=== PATIENT | female | born 1975 | race American Indian/Alaskan Native ===

== ENCOUNTER 2018-02-02 11:00 | Outpatient (CLI) | payer MEDICAID | END 2018-02-02 11:01 | disposition home or self-care (01) | LOC: SLR 11:00 | PROVIDERS: ATTEND Otolaryngology | DX: G47.33 Obstructive sleep apnea (adult) (pediatric) (principal); E66.9 Obesity, unspecified; E03.9 Hypothyroidism, unspecified; Z90.710 Acquired absence of both cervix and uterus | CPT/HCPCS: G0399 ==

== ENCOUNTER 2021-12-22 23:57 | Observation (INO) | payer MEDICAID, OTHER ==
[2021-12-23] MEDS ORDERED: KETOROLAC 30 MG/1 ML INJ IV ONE (23:07)
[2021-12-23] MEDS ORDERED: diphenhydrAMINE 50 MG/ML VIAL IV ONE (23:07)
[2021-12-23] MEDS ORDERED: PROCHLORPERAZINE EDISYLATE 10 MG/2 ML VIAL IV ONE (23:07)
[2021-12-23] MEDS ORDERED: LIDOCAINE (4%) 40 MG/ML TOPICAL SOLN 50 ML BOTTLE TP ONE (23:45)
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
[2021-12-24 00:16] LABS: Basophils # (Auto) 0.1 K/mm3 (0.0-0.1); Basophils % (Auto) 1.2 % (0.0-1.8); Eosinophils # (Auto) 0.1 K/mm3 (0.0-0.4); Eosinophils % (Auto) 1.3 % (0.0-4.3); Hematocrit 38.9 % (30.3-42.9); Hemoglobin 12.8 gm/dl (10.1-14.3); Lymphocytes # (Auto) 2.9 K/mm3 (1.2-5.4); Lymphocytes % (Auto) 37.3 % (13.4-35.0); Mean Corpuscular HGB Conc 33 % (30-34); Mean Corpuscular Volume 83 fl (79-97); Monocytes # (Auto) 0.6 K/mm3 (0.0-0.8); Monocytes % (Auto) 8.2 % (0.0-7.3); Platelet Count 416 K/mm3 (140-440); Red Blood Count 4.68 M/mm3 (3.65-5.03); Red Cell Distribution Width 14.7 % (13.2-15.2)
[2021-12-24 00:28] LABS: Alanine Aminotransferase 23 units/L (7-56); Albumin 4.3 g/dL (3.9-5); Blood Urea Nitrogen 10 mg/dL (7-17); Calcium 9.2 mg/dL (8.4-10.2); Hemolysis Index 7
[2021-12-24 00:31] LABS: BUN/Creatinine Ratio 17
[2021-12-24 00:32] LABS: INR 0.87 (0.87-1.13)
[2021-12-24 00:33] LABS: Partial Thromboplastin Time 32.6 Sec. (24.2-36.6)
--- NOTE | 2021-12-24 00:40 | Cat Scan Report ---
CT HEAD WITHOUT CONTRAST INDICATION / CLINICAL INFORMATION: SANCHEZ, right sided weakness numbness. TECHNIQUE: All CT scans at this location are performed using CT dose reduction for ALARA by means of automated e xposure control. COMPARISON: None available. FINDINGS: HEMORRHAGE: None. EXTRA-AXIAL SPACES: Normal in size and morphology for the patient's age. VENTRICULAR SYSTEM: Normal in size and morphology for the patient's age. CEREBRAL PARENCHYMA: Microangiopathy bifrontal region. 1.9 cm hypodense ischemic lesion deep white ma tter left posterior parietal lobe image 21. No large territorial infarction MIDLINE SHIFT OR HERNIATION: None. CEREBELLUM / BRAINSTEM: No significant abnormality. ORBITS: Normal as visualized. SOFT TISSUES of HEAD: No significant abnormality. CALVARIUM: No significant abnormality. PARANASAL SINUSES / MASTOID AIR CELLS: Normal as visualized. ADDITIONAL FINDINGS: None. IMPRESSION: 1. 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 2. No intracranial bleed or large territorial infarction Signer Name: Wes Goodwin MD Signed: 12/24/2021 12:35 AM Workstation Name: [id number]
[2021-12-24] MEDS ORDERED: ASPIRIN 81 MG TAB CHEW PO ONE (00:55)
[2021-12-24] MEDS ORDERED: PROMETHAZINE 25 MG RECT SUPP PR PRN (00:55)
[2021-12-24] MEDS ORDERED: METOCLOPRAMIDE 10 MG TAB PO PRN (00:55)
[2021-12-24] MEDS ORDERED: ACETAMINOPHEN 325 MG TAB PO PRN (00:55)
[2021-12-24] MEDS ORDERED: MAGNESIUM HYDROXIDE (MOM) ORAL LIQD UDC PO PRN ×2 (00:55)
[2021-12-24] MEDS ORDERED: ONDANSETRON 4 MG/2 ML INJ IV PRN ×2 (00:55)
[2021-12-24] MEDS ORDERED: MORPHINE 2 MG/1 ML INJ IV PRN ×2 (00:55)
[2021-12-24] MEDS ORDERED: MORPHINE 4 MG/1 ML INJ IV PRN ×2 (00:55)
--- NOTE | 2021-12-24 01:14 | History and Physical Report ---
History of Present Illness Date of examination: 12/24/21 Date of admission: 12/24/2021 Chief complaint: Right Sided Weakness History of present illness: 46-year-old -[place]ian female presenting to the emergency room today complaining of headache, blurry vision and right-sided weakness which started about 7 PM yesterday. Blurring of vision has been ongoing for the past few days but got worse yesterday. She denies any fever or chills, no neck pain, no nause a vomiting, no abdominal pain and no diarrhea. Headache is said to be global, no known relieving or exacerbating factor. Patient denies any fall, denies any difficulty with swallowing and no difficulty with speech. She denies any facial numbness or asymmetry. Work-up in the emergency room today, labs were unremarkable. CT scan of the head shows microangiopathy with deep white matter ischemic lesion left posterior parietal lobe. No intracranial bleed or large territorial infarction. Patient is being admitted for CVA work-up. Past History Past Medical History: hypothyroidism, renal failure (Has only one functioning Kidney) Past Surgical History: hysterectomy (Partial), Other ((DUC. BREAST REDUCTION IN 2012, EXCISION BREAST BX 04-13-15)) Social history: alcohol abuse (Occasional Alcohol ) Family history: no significant family history Medications and Allergies Allergies Allergy/AdvReac Type Severity Reaction Status Date / Time No Known Allergies Allergy Verified 05/08/15 04:22 Home Medications Medication Instructions Recorded Confirmed Last Taken Type Cholecalciferol (Vitamin D3) 5,000 unit PO DAILY 04/09/15 08/31/15 08/30/15 07:00 History [Vitamin D] Levothyroxine [Synthroid] 25 mcg PO QAM 04/09/15 08/31/15 08/30/15 07:00 History Cyclobenzaprine [Flexeril] 10 mg PO TID PRN #14 tablet 09/19/16 Unknown Rx Ketorolac [Toradol] 10 mg PO Q6H PRN #20 tablet 09/19/16 Unknown Rx Active Meds: Active Medications Acetaminophen (Acetaminophen 325 Mg Tab) 650 mg PO Q4H PRN PRN Reason: Pain MILD(1-3)/Fever >100.5/SANCHEZ Aspirin (Aspirin 325 Mg Tab) 325 mg PO QDAY DIRK Atorvastatin Calcium (Atorvastatin 40 Mg Tab) 40 mg PO QHS DIRK Bisacodyl (Bisacodyl 10 Mg Rect Supp) 10 mg MS QDAY PRN PRN Reason: Constipation Heparin Sodium (Porcine) (Heparin 5,000 Unit/1 Ml Vial) 5,000 unit SUB-Q Q8HR DIRK Magnesium Hydroxide (Magnesium Hydroxide (Mom) Oral Liqd Udc) 30 ml PO Q4H PRN PRN Reason: Constipation Magnesium Hydroxide (Magnesium Hydroxide (Mom) Oral Liqd Udc) 30 ml PO Q4H PRN PRN Reason: Constipation Metoclopramide HCl (Metoclopramide 10 Mg Tab) 10 mg PO Q6H PRN PRN Reason: Nausea And Vomiting Morphine Sulfate (Morphine 2 Mg/1 Ml Inj) 2 mg IV Q4H PRN PRN Reason: Pain, Moderate (4-6) Morphine Sulfate (Morphine 4 Mg/1 Ml Inj) 4 mg IV Q4H PRN PRN Reason: Pain , Severe (7-10) Morphine Sulfate (Morphine 2 Mg/1 Ml Inj) 2 mg IV Q4H PRN PRN Reason: Pain, Moderate (4-6) Morphine Sulfate (Morphine 4 Mg/1 Ml Inj) 4 mg IV Q4H PRN PRN Reason: Pain , Severe (7-10) Ondansetron HCl (Ondansetron 4 Mg/2 Ml Inj) 4 mg IV Q8H PRN PRN Reason: Nausea And Vomiting Ondansetron HCl (Ondansetron 4 Mg/2 Ml Inj) 4 mg IV Q8H PRN PRN Reason: Nausea And Vomiting Promethazine HCl (Promethazine 25 Mg Rect Supp) 25 mg MS Q6H PRN PRN Reason: Nausea And Vomiting Sodium Chloride (Sodium Chloride 0.9% 10 Ml Flush Syringe) 10 ml IV BID DIRK Sodium Chloride (Sodium Chloride 0.9% 10 Ml Flush Syringe) 10 ml IV PRN PRN PRN Reason: LINE FLUSH Sodium Chloride (Sodium Chloride 0.9% 10 Ml Flush Syringe) 10 ml INJ PRN PRN PRN Reason: LINE FLUSH Review of Systems Constitutional: no fever, no chills Ears, nose, mouth and throat: no nasal congestion, no sore throat Cardiovascular: no chest pain, no palpitations Respiratory: no cough, no shortness of breath Gastrointestinal: no abdominal pain, no nausea, no vomiting, no diarrhea Genitourinary Female: no pelvic pain, no flank pain, no dysuria, no hematuria Musculoskeletal: no neck pain, no low back pain Integumentary: no rash, no pruritis Neurological: weakness (Right sided weakness), headaches, no confusion Psychiatric: no anxiety, no depression Endocrine: no polyphagia, no polydipsia, no polyuria, no nocturia Exam - Constitutional Vitals: Temp Pulse Resp BP Pulse Ox 98.0 F 75 19 142/85 100 12/23/21 00:51 12/23/21 23:57 12/23/21 23:57 12/23/21 23:57 12/23/21 23:57 General appearance: Present: no acute distress, well-nourished - EENT Eyes: Present: PERRL, EOM intact. Absent: scleral icterus ENT: hearing intact, clear oral mucosa, dentition normal - Neck Neck: Present: supple, normal ROM - Respiratory Respiratory effort: normal Respiratory: bilateral: CTA - Cardiovascular Rhythm: regular Heart Sounds: Present: S1 & S2. Absent: gallop, systolic murmur, diastolic murmur, rub, click - Extremities Extremities: no ischemia, pulses intact, pulses symmetrical, No edema, normal temperature, Full ROM Peripheral Pulses: within normal limits - Abdominal General gastrointestinal: Present: soft, non-tender, non-distended, normal bowel sounds. Absent: mass - Integumentary Integumentary: Present: clear, warm, dry, normal turgor. Absent: rash - Musculoskeletal Musculoskeletal: right sided weakness - Psychiatric Psychiatric: appropriate mood/affect, intact judgment & insight, memory intact, cooperative - Neurologic Neurologic: CNII-XII intact, moves all extremities, other (Right upper and right lower extremity weakness) HEART Score - HEART Score Troponin: Troponin T < 0.010 ng/mL (0.00-0.029) 12/23/21 23:49 Results - Labs CBC & Chem 7: 12/23/21 23:49 12/23/21 23:49 Labs: Abnormal lab results 12/23/21 12/23/21 Range/Units 23:49 23:49 MCH 27 L (28-32) pg Lymph % (Auto) 37.3 H (13.4-35.0) % [place] % (Auto) 8.2 H (0.0-7.3) % Glucose 101 H (65-100) mg/dL Alkaline Phosphatase 132 H (35-129) units/L Total Creatine Kinase 235 H (30-135) units/L Assessment and Plan Assessment: 1. Right-sided weakness- R/O CVA 2. History of hypothyroidism 3. History of GERD 4. Headache Plan: 1. Patient admitted and placed on telemetry. Placed on daily aspirin and statin. 2. We will schedule for carotid Doppler, echocardiogram and MRI of the brain. 3. Consult placed to neurology for evaluation and recommendation. 4. We will resume routine home medications once reconciled. 5. We will consult PT /OT for evaluation and recommendations. DVT prophylaxis: Subcutaneous heparin CODE STATUS: Full code
[2021-12-24] MEDS: HEPARIN 5,000 UNIT/1 ML VIAL SUB-Q SCH ×2 (05:30→14:21)
[2021-12-24] MEDS ORDERED: ASPIRIN 325 MG TAB PO SCH (10:00)
--- NOTE | 2021-12-24 11:08 | Magnetic Resonance Report ---
MRI BRAIN 12/24/2021 INDICATION / CLINICAL INFORMATION: Stroke vs. MS, DIZZINESS, LOSS OF VISION. TECHNIQUE: Multiplanar, multisequence MR images of the brain were obtained. COMPARISON: None available. FINDINGS: BRAIN / INTRACRANIAL CONTENTS: Unenhanced and enhanced MR images of the brain were obtained. There is no evidence of acute abnormality. Ventricles and sulci are normal in size and shape. Diffusely prominent perivascular spaces are present in the cerebral cortex. I would consider this to be somewhat unusual anatomic variant. There is no evidence of ischemic injury, demyelination, hemorrhage, or mass. There are no abnormal ex tra-axial fluid collections. Postcontrast images demonstrate no abnormal contrast enhancement. EXTRACRANIAL: Unremarkable CRANIOCERVICAL JUNCTION: No significant abnormality. VASCULAR FLOW-VOIDS: No significant abnormality. IMPRESSION: 1. No acute abnormality. 2. Diffusely prominent perivascular space in the cerebral cortices No evidence of acute ischemic injury or demyelination. Signer Name: Randolph Lozano MD Signed: 12/24/2021 11:03 AM Workstation Name: [id number]
--- NOTE | 2021-12-24 11:09 | Magnetic Resonance Report ---
MRA NECK 12/24/2021 INDICATION / CLINICAL INFORMATION: Stroke, DIZZINESS, LOSS OF VISION. TECHNIQUE: Routine MRA of the neck are performed. 3-D/MIP reformats postprocessed. Percentage stenosis is deter mined by direct quantitative measurements of distal internal carotid artery diameter compared with no rmal reference segments or by criteria similar to NASCET where applicable. COMPARISON: None available. FINDINGS: Unenhanced and enhanced MR angiographic images of the neck were obtained. 3D/MIP reformats were post- processed. Postcontrast images are of limited quality due to difficulties with bolus timing. Carotid bifurcations: No evidence of abnormality. Common carotid arteries: No significant abnormality. Cervical internal carotid arteries: No significant abnormality. Cervical vertebral arteries: No significant abnormality. Visible aortic arch: Not well seen IMPRESSION: No significant abnormality. Signer Name: Randolph Lozano MD Signed: 12/24/2021 11:05 AM Workstation Name: [id number]
--- NOTE | 2021-12-24 11:10 | Magnetic Resonance Report ---
MR VENOGRAM BRAIN 12/24/2021 HISTORY: Venous Sinus Thrombosis / Stroke workup. FINDINGS: MR venographic images of the intracranial circulation were obtained. There is good flow signal in the major dural sinuses. The left transverse and sigmoid sinus are relat ively hypoplastic, in a pattern consistent with anatomic variation. IMPRESSION: No significant abnormality. All CT scans at this location are performed using dose reduction to ALARA by means of automated expos ure control. Signer Name: Randolph Lozano MD Signed: 12/24/2021 11:06 AM Workstation Name: [id number]
[2021-12-24 12:00] VITALS: BP 106/72
--- NOTE | 2021-12-24 13:32 | Electrocardiograph Report ---
[facility] Test Date: 2021-12-24 Test Time: 00:12:58 Pat Name: LICO BROOKS Department: Room: A469 1 Gender: F Sample Wrapper: LESLIE : 1975 Requested By: KIA CARTAGENA Order Number: [id number] Reading MD: Christal Wilder Measurements Intervals [place] Rate: 69 P: 64 NM: 134 QRS: 18 QRSD: 79 T: 55 QT: 418 QTc: 448 Interpretive Statements Sinus rhythm Poor R wave progress No previous ECG available for comparison Electronically Signed On 12-24-2021 13:32:24 EDT by Christal Wilder
--- NOTE | 2021-12-24 14:24 | Vascular Lab Report ---
DUPLEX DOPPLER ULTRASOUND CAROTID, BILATERAL INDICATION / CLINICAL INFORMATION: stroke. COMPARISON: MRA/MRV neck performed today. FINDINGS: RIGHT CAROTID: No significant atherosclerotic plaque. - PLAQUE ESTIMATE (%): None. - CCA velocity: 80 cm/sec. - ICA peak systolic velocity: 119 cm/sec. - ICA/CCA PSV Ratio: Less than 2. Right Vertebral Artery: Antegrade flow. LEFT CAROTID: No significant atherosclerotic plaque. - PLAQUE ESTIMATE (%): None. - CCA velocity: 107 cm/sec. - ICA peak systolic velocity: 121 cm/sec. - ICA/CCA PSV Ratio: Less than 2. Left Vertebral Artery: Antegrade flow. IMPRESSION: 1. Right Internal Carotid Artery: Normal. No stenosis. 2. Left Internal Carotid Artery: Normal. No stenosis. Velocity criteria are extrapolated from diameter data as defined by the Society of Radiologists in Ul trasound Consensus Conference, Radiology 2003; 229;340-346. NO STENOSIS (NORMAL) - Plaque = none; ICA PSV < 125 cm/sec; ICA/CCA PSV Ratio < 2.0 <50% STENOSIS - Plaque < 50%; ICA PSV < 125 cm/sec; ICA/CCA PSV Ratio < 2.0 50-69% STENOSIS - Plaque > 50%; ICA PSV = 125-230 cm/sec; ICA/CCA PSV Ratio = 2.0-4.0 >70% BUT <100% STENOSIS - Plaque > 50%; ICA PSV > 230 cm/sec; ICA/CCA PSV Ratio > 4.0 NEAR OCCLUSION - Plaque = visible lumen; ICA PSV = high/low/none; ICA/CCA PSV Ratio = variable TOTAL OCCLUSION - Plaque = no lumen; ICA PSV = none; ICA/CCA PSV Ratio = N/A Scribed by: Tanvi Garcias RDMS, RVT, RMSKS Scribed: 12/24/2021 12:15 PM I have reviewed the images, agree with this report, and edited this report as needed. Signer Name: Ramón Bills MD Signed: 12/24/2021 2:20 PM Workstation Name: [id number]
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
[2021-12-25] MEDS ORDERED: LEVOTHYROXINE 25 MCG TAB PO SCH (06:00)
== END 2021-12-24 17:15 | disposition home or self-care (01) ==
LOC: ED 23:57 → INTOOBSV 12-24 00:55 → 4A 12-24 00:55
PROVIDERS: ADMIT Internal Medicine Geriatric Medicine; ATTEND Internal Medicine
DX: M62.81 Muscle weakness (generalized) (principal); E03.9 Hypothyroidism, unspecified; K21.9 Gastro-esophageal reflux disease without esophagitis; N19 Unspecified kidney failure; G43.909 Migraine, unspecified, not intractable, without status migrainosus; R29.701 NIHSS score 1; Z90.710 Acquired absence of both cervix and uterus; Z79.899 Other long term (current) drug therapy; Z98.890 Other specified postprocedural states; Z79.82 Long term (current) use of aspirin
CPT/HCPCS: 36415; 70450; 70544; 70549; 70553; 80053; 82550; 82553; 82962; 84484; 84702; 85025; 85610; 85670; 85730; 92610; 93005; 93880; 96372; 96374; 96375; 97162; 97165; 99285; A9575; C8929; G0378; J0780; J1200; J1644; J1885; J2270; 93306